=== PATIENT | female | born 1990 | race Caucasian/White ===

== ENCOUNTER 2016-03-12 08:31 | Inpatient (IN) | payer OTHER ==
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
[2016-03-12] MEDS ORDERED: fentaNYL 100 MCG/2 ML INJ IVP ONE (09:40)
[2016-03-12] MEDS ORDERED: ONDANSETRON 4 MG/2 ML VIAL ONE (09:48)
[2016-03-12] MEDS ORDERED: ONDANSETRON 4 MG/2 ML VIAL IVP PRN (10:33)
[2016-03-12] MEDS ORDERED: D5W NS 1,000 ML IV SCH (10:45)
[2016-03-12] MEDS ORDERED: levETIRAcetam 750 MG in NS 100 ML IV SCH (11:00)
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
--- NOTE | 2016-03-12 13:14 | CT ---
CT Head (Without Contrast) March 12, 2016 1303 hours Indication: Follow up intracranial hemorrhage. Technique: Standard noncontrast head CT protocol utilizing 5 mm thick collimated slices and field of view of 23 cm. Dose reduction techniques were utilized. Comparison: CT head from 3 hours prior. Findings: The thin, 3 mm, mixed density subdural hematoma along the high right parietal convexity is unchanged in size and density. The small volume subarachnoid hemorrhage along the posterior right temporal lobe and along the laundry machine mechanic ior aspect of the left frontal lobe in the paramedian distribution along the interhemispheric falx on image 77 of series 3 are both decreased in size. No new intracranial hemorrhage or shift. The ventri cular system is normal caliber and midline. Erickson and white matter attenuation is preserved. No eviden ce of ischemia. No acute fracture. Impression: 1. Thin subdural hematoma along the right parietal convexity is unchanged. 2. Decreased density of small volume of subarachnoid hemorrhage along the posterior right temporal an d left paramedian frontal lobe. 3. No new site of hemorrhage, mass effect or shift has developed.
[2016-03-12] MEDS: ACETAMINOPHEN 500 MG TAB PO SCH ×2 (15:38→21:11)
[2016-03-12] MEDS ORDERED: CYCLOBENZAPRINE 10 MG TAB PO PRN (17:30)
[2016-03-12] MEDS: levETIRAcetam 750 MG in NS 100 ML IV SCH (21:18)
[2016-03-13] MEDS: ACETAMINOPHEN 500 MG TAB PO SCH (06:24)
[2016-03-13 08:07] VITALS: TEMP 98.2
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
[2016-03-13] MEDS: levETIRAcetam 750 MG in NS 100 ML IV SCH (08:40)
[2016-03-13] MEDS ORDERED: HYDROmorphONE/DILAUDID 1 MG/ML SYR IVP ONE (10:12)
[2016-03-13] MEDS ORDERED: ONDANSETRON DISINTEGRATING 4 MG TAB PO PRN (10:17)
[2016-03-13] MEDS ORDERED: OXYCODONE/APAP 5/325 TAB PO PRN (10:18)
--- NOTE | 2016-03-13 10:23 | TRAUMAPN ---
- Problem/Surgery Performed (1) Traumatic subdural hemorrhage Assessment/Plan: PAD#1 03/13/2016 Assessment: C/o headache, neuro intact, c/o nausea, emotionally labile Plan: Will transfer to med/surg will get fu MRI given headache to r/o any changes Qualifiers: Encounter type: initial encounter Loss of consciousness presence/ duration: with LOC of 30 min or less Qualifier Code(s): (S06.5X1A) Traumatic subdural hemorrhage with loss of consciousness of 30 minutes or less, initial encounter Subjective: c/o nausea and headache Objective: Vital Signs Temp Pulse Resp BP Pulse Ox 36.8 C 68 14 99/52 L 96 03/13/16 08:00 03/13/16 08:00 03/13/16 08:00 03/13/16 08:00 03/13/16 08:00 03/12/16 03/13/16 03/14/16 05:59 05:59 05:59 Intake Total 340 Output Total 400 Balance -60 - C-Spine Clearance Cervical Spine Cleared: Yes Provider who Cleared Cervical Spine: coty on admission after CT neck Physical Exam - Physical Exam General Appearance: alert, other (tearful, cooperative) Neck: non-tender, full range of motion, supple, other (right neck nontender but swollen) Respiratory: chest non-tender, lungs clear, normal breath sounds Cardiac/Chest: regular rate, rhythm, other (No murmur) Abdomen: normal bowel sounds, non-tender, soft Pelvic Exam: deferred Rectal: deferred Back: Normal inspection Skin: normal color, warm/dry Extremities: normal range of motion Neuro/Psych: no motor/sensory deficits, alert, normal mood/affect, oriented x 3 Time Spent w/Patient (minutes): 35
[2016-03-13] MEDS ORDERED: levETIRAcetam 500 MG TAB PO SCH (10:30)
[2016-03-13] MEDS ORDERED: ALPRAZolam 0.25 MG TAB PO PRN (10:32)
[2016-03-13 12:38] VITALS: BP 99/54; PULSE 70; RESP 13; O2SAT 94
--- NOTE | 2016-03-13 15:06 | MR ---
MRI of the Brain (Without Contrast) at 1416 hours Clinical Indications: Increasing headache, right subdural hematoma. Comparison: CT from March 12, 2016. Technique: T1-weighted images were acquired axially and sagittally from the foramen magnum to the ve rtex. Axial fast inversion recovery, fast T2-weighted, and diffusion-weighted axial images were obta ined without contrast. Findings: Thin right parieto-occipital subacute subdural hematoma measuring 3 mm in thickness is bes t identified on the FLAIR series without significant interval change since recent studies. No intrapa renchymal hemorrhage. No epidural hematoma or mass effect. The ventricles, cisterns, and sulci are no rmal without atrophy, hydrocephalus, midline shift, herniation. Diffusion-weighted sequence demonst rates no acute infarct. Cerebellar tonsils are in normal position. Pituitary gland is normal in size. Normal signal flow-void in the superior sagittal sinus, basilar artery, and bilateral internal carot id arteries indicating patency. Paranasal sinuses and mastoid air cells are clear. Impression: 1. Thin right parieto-occipital subacute subdural hematoma without mass effect. 2. No hydrocephalus, midline shift or herniation. 3. No acute infarct.
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
== END 2016-03-13 16:40 | disposition home or self-care (01) | DRG 87 ==
LOC: EDUNIT# → OBSVTOIN 10:38 → F2N 15:17
PROVIDERS: ADMIT Surgery; ATTEND Surgery
DX: S06.6X1A Traumatic subarachnoid hemorrhage with loss of consciousness of 30 minutes or less, initial encounter (principal); S06.5X1A Traumatic subdural hemorrhage with loss of consciousness of 30 minutes or less, initial encounter; V03.10XA Pedestrian on foot injured in collision with car, pick-up truck or van in traffic accident, initial encounter; Y92.414 Local residential or business street as the place of occurrence of the external cause; Y93.01 Activity, walking, marching and hiking
CPT/HCPCS: 92523-GN; 96374; 97161-GP; 97165-GO; 97535-GO; J1170; J1953; J2405; J3010

== ENCOUNTER → 2016-03-21 | Outpatient (CLI) | payer OTHER ==
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
== END ==
LOC: FIMAGING 12:49
PROVIDERS: ATTEND Physician Assistant
DX: Z87.820 Personal history of traumatic brain injury (principal); Z09 Encounter for follow-up examination after completed treatment for conditions other than malignant neoplasm